=== PATIENT | female | born 1945 | race Caucasian/White ===

== ENCOUNTER 2016-08-15 19:24 | Emergency (ER) | payer OTHER ==
[~2016-08-15] VITALS: Wt 68.2 kg
[~2016-08-15 19:24] MED LIST: ACET-514 PO; ACET500C5 PO; TRAM50TA2 PO
[2016-08-15] MEDS ORDERED: LIDOCAINE 1%/EPI (MDV) 20 ML INJ TOP ONE (20:00)
--- NOTE | 2016-08-15 20:37 | ERD ---
ER Documentation Chief Complaint Date/Time DATE: 08/15/16 TIME: 20:35 Chief Complaint bleeding post tooth extraction, bleeding controlled w biting down on franco CORMIER This is a 70-year-old female presents to the emergency room for evaluation of bleeding postextraction of her tooth. The patient states that she has been using gauze and has noted some mild oozing of blood. The patient came to the ER today for evaluation. She denies any trauma to the area, denies any bleeding from any other sites, denies being on blood thinner medication ROS All systems reviewed and are negative except as per history of present illness. Medications Home Meds Active Scripts Acetaminophen* (Tylophen*) 500 Mg Capsule, 1 CAP PO Q6H Y for PAIN AND OR ELEVATED TEMP, #20 CAP Prov:ANAYA TURNER PA-C 05/25/16 Tramadol HCl (Tramadol HCl) 50 Mg Tablet, 50 MG PO Q6 Y for PAIN, #10 TAB Prov:GAYATRI WAGONER DO 03/24/16 Acetaminophen (Acetaminophen) 325 Mg Tablet, 325 MG PO Q4H WHILE AWAKE, #20 TAB Prov:GAYATRI WAGONER DO 03/24/16 Allergies Allergies: Coded Allergies: No Known Allergy (Unverified , 05/25/16) PMhx/Soc History of Surgery: Yes (CSECT X1, TUBAL LIGATION) Anesthesia Reaction: No Hx Neurological Disorder: No Hx Respiratory Disorders: No Hx Cardiac Disorders: Yes (HTN, HIGH CHOLESTEROL) Hx Psychiatric Problems: No Hx Alcohol Use: No Hx Substance Use: No Hx Tobacco Use: No Physical Exam Vitals Vital Signs Date Time Temp Pulse Resp B/P Pulse Ox O2 Delivery O2 Flow Rate FiO2 08/15/16 19:37 98.5 99 20 174/81 96 Physical Exam Const: No acute distress Head: Atraumatic Eyes: Normal Conjunctiva ENT: Right lower premolar tooth extraction with sutures in place, mild oozing noted from the gum. No pulsatile bleeding. Normal External Ears, Nose and Mouth. Neck: Full range of motion..~ No meningismus. Resp: Clear to auscultation bilaterally Cardio: Regular rate and rhythm, no murmurs Abd: Soft, non tender, non distended. Normal bowel sounds Skin: No petechiae or rashes Back: No midline or flank tenderness Ext: No cyanosis, or edema Neur: Awake and alert Psych: Normal Mood and Affect Results 24 hrs Current Medications Medications (Trade) Dose Ordered Sig/Mor Route PRN Reason Start Time Stop Time Status Last Admin Dose Admin Lidocaine/ Epinephrine (Xylocaine 1%/ Epi (Mdv) 20 ml) 20 ml ONCE ONCE TOP 08/15/16 20:00 08/15/16 20:01 DC Procedures/MDM This 70-year-old female presents to the ER for evaluation of bleeding from a extraction site of her tooth. When I evaluated this patient she had mild oozing from the site. She did have gauze in her mouth. I removed the gauze and the blood clot. I did place a gauze coated with 1% lidocaine with epinephrine on the side and held pressure for 20 minutes. There was still mild oozing however it was less. More pressure was applied and more epinephrine was applied with almost complete resolution of her bleeding. I advised patient she can use a tea bag at home. The patient verbalized understanding. No dizziness , no hypotension. This patient will be discharged home at this time per Departure Diagnosis: Primary Impression: Bleeding gums Condition: Stable SHAUN STEVEN DO Aug 15, 2016 20:37
== END 2016-08-15 21:01 | disposition home or self-care (01) ==
LOC: FTE 19:24
DX: K06.8 Other specified disorders of gingiva and edentulous alveolar ridge (principal); I10 Essential (primary) hypertension; E11.9 Type 2 diabetes mellitus without complications
CPT/HCPCS: 99282

== ENCOUNTER 2016-08-16 14:20 | Emergency (ER) | payer OTHER ==
[~2016-08-16] VITALS: Wt 52.0 kg
--- NOTE | 2016-08-16 18:41 | ERA ---
ER Documentation Chief Complaint Date/Time DATE: 08/16/16 TIME: 18:36 Chief Complaint DENTAL BLEEDING FROM TOOTH REMOVAL 24 HOURS AGO. BLEEDING NOT CONTROLED HPI Patient presents one day after getting 1 of her right lower molars pulled. Patient is upset because the bleeding has not stopped yet. Patient has not been compliant with the gauze and the pressure. Patient's on aspirin and now is also taking ibuprofen. Patient claims to not have any pain at this time. Patient is also taking amoxicillin for prophylaxis for infection. Patient denies any swelling or difficulty breathing. ROS All systems reviewed and are negative except as per history of present illness. Medications Home Meds Active Scripts Acetaminophen* (Tylophen*) 500 Mg Capsule, 1 CAP PO Q6H Y for PAIN AND OR ELEVATED TEMP, #20 CAP Prov:ANAYA TURNER PA-C 05/25/16 Tramadol HCl (Tramadol HCl) 50 Mg Tablet, 50 MG PO Q6 Y for PAIN, #10 TAB Prov:GAYATRI WAGONER DO 03/24/16 Acetaminophen (Acetaminophen) 325 Mg Tablet, 325 MG PO Q4H WHILE AWAKE, #20 TAB Prov:GAYATRI WAGONER DO 03/24/16 Allergies Allergies: Coded Allergies: No Known Allergy (Unverified , 05/25/16) PMhx/Soc History of Surgery: Yes (CSECT X1, TUBAL LIGATION) Anesthesia Reaction: No Hx Neurological Disorder: No Hx Respiratory Disorders: No Hx Cardiac Disorders: Yes (HTN, HIGH CHOLESTEROL) Hx Psychiatric Problems: No Hx Alcohol Use: No Hx Substance Use: No Hx Tobacco Use: No Physical Exam Vitals Vital Signs Date Time Temp Pulse Resp B/P Pulse Ox O2 Delivery O2 Flow Rate FiO2 08/16/16 14:32 98.5 88 20 127/68 98 Physical Exam Const: Patient is a thin 70-year-old female who seems anxious. Head: Atraumatic Eyes: Normal Conjunctiva ENT: Normal External Ears, Nose. Patient has a missing lower right molar with bleeding from the area. Neck: Full range of motion..~ No meningismus. Resp: Clear to auscultation bilaterally Cardio: Regular rate and rhythm, no murmurs Abd: Soft, non tender, non distended. Normal bowel sounds Skin: No petechiae or rashes Back: No midline or flank tenderness Ext: No cyanosis, or edema Neur: Awake and alert Psych: Normal Mood and Affect Procedures/MDM It has only been 1 day since patient had the tooth removed. Considering she has not been compliant with the dressings and she is taking both aspirin and ibuprofen I do not expect that the bleeding should have stopped by now anyways. My recommendation for her is since she is not in pain discontinue the ibuprofen but continue the aspirin as her PCP as prescribed. Start by applying firm pressure to the gauze in the affected area for 2-4 hour and then replacing with more guys after. If swelling, erythema or infection like symptoms occur I have told her that she should return to the emergency department and contact dentist at once. At this time there is no reason to believe that there is any infection or airway involvement or excessive blood loss whatsoever. Blood loss and physical examination was minimal amounting in about 1, maybe 2 mL. Departure Diagnosis: Primary Impression: History of recent dental procedure Additional Impression: Active bleeding Condition: Stable Patient Instructions: First Aid: Bleeding Additional Instructions: Contact dentist for more clear directions on post operative wound care. My recommendation is to keep firm pressure for 2-4 hours at a time on the affected area and change the dressing. If patient is not any pain she may stop taking the ibuprofen. Do not stop taking the aspirin unless directed by her primary care physician. Follow-up with her primary care physician in 2-3 days. MARISOL HERNANDEZ PA-C Aug 16, 2016 18:41
== END 2016-08-16 18:15 | disposition home or self-care (01) ==
LOC: FTE 14:20
DX: K91.840 Postprocedural hemorrhage of a digestive system organ or structure following a digestive system procedure (principal); H05.231 Hemorrhage of right orbit; I10 Essential (primary) hypertension; E11.9 Type 2 diabetes mellitus without complications
CPT/HCPCS: 99282

== ENCOUNTER 2017-01-05 21:27 | Emergency (ER) | payer OTHER ==
[~2017-01-05] VITALS: Ht 157.5 cm; Wt 56.0 kg
[2017-01-05 21:32] VITALS: Ht 157.5 cm; Wt 56.0 kg
[2017-01-05 22:43] LABS: BASOPHILS % 0.7 % (0.0-2.0); EOSINOPHILS # 0.1 10^3/ul (0.0-0.5); EOSINOPHILS % 1.9 % (0.0-7.0); HEMATOCRIT 37.8 % (37.0-47.0); HEMOGLOBIN 13.3 g/dl (12.0-16.0); LYMPHOCYTES # 2.1 10^3/ul (0.8-2.9); LYMPHOCYTES % 36.7 % (15.0-51.0); MEAN CORPUSCULAR HEMOGLOBIN 31.4 pg (29.0-33.0); MEAN CORPUSCULAR HGB CONC 35.2 g/dl (32.0-37.0); MEAN CORPUSCULAR VOLUME 89.4 fl (82.0-101.0); MEAN PLATELET VOLUME 9.3 fl (7.4-10.4); MONOCYTE # 0.5 10^3/ul (0.3-0.9); NEUTROPHILS % 51.4 % (39.0-77.0); PLATELET COUNT 281 10^3/UL (140-415); RED BLOOD COUNT 4.23 10^6/ul (4.20-5.40); RED CELL DISTRIBUTION WIDTH 13.6 % (11.5-14.5); WHITE BLOOD COUNT 5.8 10^3/ul (4.8-10.8)
[2017-01-05] MEDS ORDERED: MECLIZINE 12.5 MG TAB PO ONE (23:00)
[2017-01-05 23:01] LABS: INR 0.91; PROTIME 12.3 Sec (12.2-14.2)
[2017-01-05 23:02] LABS: PARTIAL THROMBOPLASTIN TIME 34.6 Sec (25.0-35.0)
[2017-01-05 23:03] LABS: ANION GAP 19 (8-16); BLOOD UREA NITROGEN 13 mg/dl (7-20); CALCIUM 9.5 mg/dl (8.4-10.2); CARBON DIOXIDE 25 mmol/L (21-31); CHLORIDE 104 mmol/L (97-110); CREATININE 0.58 mg/dl (0.44-1.00); GLUCOSE 175 mg/dl (70-220); POTASSIUM 3.5 mmol/L (3.5-5.1); SODIUM 144 mmol/L (135-144)
[2017-01-05 23:07] LABS: ADD UMIC YES; UR ASCORBIC ACID NEGATIVE (NEGATIVE); UR BILIRUBIN (Dip) NEGATIVE (NEGATIVE); UR BLOOD (Dip) 1+ mg/dL (NEGATIVE); UR CLARITY CLEAR (CLEAR); UR COLOR COLORLESS (YELLOW); UR GLUCOSE (Dip) NEGATIVE (NEGATIVE); UR KETONES (Dip) NEGATIVE (NEGATIVE); UR LEUKOCYTE ESTERASE (Dip) 1+ Leu/ul (NEGATIVE); UR NITRITE (Dip) NEGATIVE (NEGATIVE); UR RBC 0 /HPF (0-5); UR SPECIFIC GRAVITY (Dip) 1.002 (1.003-1.030); UR TOTAL PROTEIN (Dip) NEGATIVE (NEGATIVE); UR UROBILINOGEN (Dip) NEGATIVE (NEGATIVE)
--- NOTE | 2017-01-05 23:15 | ERD ---
ER Documentation Chief Complaint Date/Time DATE: 01/05/17 TIME: 23:13 Chief Complaint C/O dizziness and headache. B/P in 200s at home with her own machine. HPI This is a 71-year-old female who presents to the emergency room for evaluation of dizziness and a slight headache. The patient states that she check her blood pressure at home and was elevated. She does have a history of hypertension and the patient denies any trauma. She denies any blurred vision, nausea, vomiting or chest pain associated with this. She localizes the headache to the front portion of her head and states that it is an achy pain. The patient states that she has had headaches like this previously when her blood pressure has been high. ROS All systems reviewed and are negative except as per history of present illness. Medications Home Meds Active Scripts Acetaminophen* (Tylophen*) 500 Mg Capsule, 1 CAP PO Q6H Y for PAIN AND OR ELEVATED TEMP, #20 CAP Prov:ANAYA TURNER PA-C 05/25/16 Tramadol HCl (Tramadol HCl) 50 Mg Tablet, 50 MG PO Q6 Y for PAIN, #10 TAB Prov:GAYATRI WAGONER DO 03/24/16 Acetaminophen (Acetaminophen) 325 Mg Tablet, 325 MG PO Q4H WHILE AWAKE, #20 TAB Prov:GAYATRI WAGONER DO 03/24/16 Allergies Allergies: Coded Allergies: No Known Allergy (Unverified , 05/25/16) PMhx/Soc Medical and Surgical Hx: pt denies Medical Hx, pt denies Surgical Hx History of Surgery: Yes (CSECT X1, TUBAL LIGATION) Anesthesia Reaction: No Hx Neurological Disorder: No Hx Respiratory Disorders: No Hx Cardiac Disorders: Yes (HTN, HIGH CHOLESTEROL) Hx Psychiatric Problems: No Hx Alcohol Use: No Hx Substance Use: No Hx Tobacco Use: No Smoking Status: Never smoker Physical Exam Vitals Vital Signs Date Time Temp Pulse Resp B/P Pulse Ox O2 Delivery O2 Flow Rate FiO2 01/05/17 21:58 98.6 89 18 157/77 100 Room Air 01/05/17 21:32 97.0 83 20 191/84 98 Physical Exam INITIAL VITAL SIGNS: Reviewed by me GENERAL: The patient is well developed and appropriate for usual state of health in no apparent distress HEENT: Pupils equal, round, and reactive to light. EOMI. There is no scleral icterus. NECK: C-spine is soft and supple, there is no meningismus. There is no cervical lymphadenopathy. LUNGS: Clear to auscultation bilaterally. There are no rales, wheezes or rhonchi. HEART: Regular rate and rhythm, no murmurs, clicks, rubs or gallops. ABDOMEN: Soft, non-tender, non-distended. There are bowel sounds in all four quadrants. No rebound or guarding. EXTREMITIES: There is no peripheral cyanosis or edema. No focal swelling or erythema. NEUROLOGICAL: The patient moves all four extremities with 5/5 strength. Cranial nerves II - XII are intact. Normal gait. Alert and oriented SKIN: There is no apparent rash or petechiae. HEME/LYMPHATIC: There is no evidence of excessive bruising or lymphedema. PSYCHIATRIC: The patient does not appear anxious or depressed. Result Diagram: 01/05/17221401/05/172214 Results 24 hrs Laboratory Tests Test 01/05/17 22:00 01/05/17 22:04 01/05/17 22:15 Urine Color COLORLESS Urine Clarity CLEAR Urine pH 7.0 Urine Specific [place] 1.002 Urine Ketones NEGATIVEmg/dL Urine Nitrite NEGATIVEmg/dL Urine Bilirubin NEGATIVEmg/dL Urine Urobilinogen NEGATIVEmg/dL Urine Leukocyte Esterase 1+Yahir/ul Urine Microscopic RBC 0/HPF Urine Microscopic WBC 1/HPF Urine Hemoglobin 1+mg/dL Urine Glucose NEGATIVEmg/dL Urine Total Protein NEGATIVEmg/dl Bedside Glucose 182mg/dL White Blood Count 5.810^3/ul Red Blood Count 4.2310^6/ul Hemoglobin 13.3g/dl Hematocrit 37.8% Mean Corpuscular Volume 89.4fl Mean Corpuscular Hemoglobin 31.4pg Mean Corpuscular Hemoglobin Concent 35.2g/dl Red Cell Distribution Width 13.6% Platelet Count 71019^3/UL Mean Platelet Volume 9.3fl Neutrophils % 51.4% Lymphocytes % 36.7% Monocytes % 9.0% Eosinophils % 1.9% Basophils % 0.7% Nucleated Red Blood Cells % 0.0/100WBC Neutrophils # 3.010^3/ul Lymphocytes # 2.110^3/ul Monocytes # 0.510^3/ul Eosinophils # 0.110^3/ul Basophils # 0.010^3/ul Nucleated Red Blood Cells # 0.010^3/ul Prothrombin Time 12.3Sec Prothrombin Time Ratio 1.0 INR International Normalized Ratio 0.91 Activated Partial Thromboplast Time 34.6Sec Sodium Level 144mmol/L Potassium Level 3.5mmol/L Chloride Level 104mmol/L Carbon Dioxide Level 25mmol/L Anion Gap 19 Blood Urea Nitrogen 13mg/dl Creatinine 0.58mg/dl Glucose Level 175mg/dl Calcium Level 9.5mg/dl Troponin I Pending Current Medications Medications (Trade) Dose Ordered Sig/Mor Route PRN Reason Start Time Stop Time Status Last Admin Dose Admin Meclizine HCl (Antivert) 25 mg ONCE ONCE PO 01/05/17 23:00 01/05/17 23:01 DC 01/05/17 23:24 Procedures/MDM EKG: Rate/Rhythm: [Normal Sinus Rhythm] QRS, ST, T-waves: [No changes consistent w/ acute ischemia] Impression: [No evidence of ischemia or arrhythmia] Chest X-ray 1V Interpreted by me: Soft Tissue: No acute abnormalities Bones: No acute abnormalities Mediastinum/Cardiac Silhouette/Lungs: [No acute abnormalities] CT brain without: No bleed 71-year-old female presents to the emergency room for evaluation of dizziness and a headache. The patient was stating she had an elevated blood pressure at home. The patient's blood pressure in the emergency room is 131/74. Her heart rate is within normal limits, she is not hypoxic, no acute distress. She is afebrile, no meningeal signs and she is alert oriented to person place and time with no focal neurological deficits. Lab work is within normal limits, CT of the head is within normal limits at this time. The patient was given meclizine and upon my reevaluation she does state she is feeling better. The patient will be discharged at this time with a prescription for meclizine Departure Diagnosis: Primary Impression: Dizziness Additional Impression: Headache Condition: Stable HSAUN STEVEN DO Jan 05, 2017 23:15
--- NOTE | 2017-01-05 23:19 | RADRPT ---
PROCEDURE: CT Head without. CLINICAL INDICATION: Possible stroke. TECHNIQUE: The study was performed utilizing a multi-slice, multidetector CT scanner. Direct spira l 1 mm axial sections were obtained through the head without the use of intravenous contrast materia l. 1 or more of the following dose reduction techniques were utilized: Automated exposure control, adjustment of the mA and/or kV according to patient's size, iterative reconstruction technique. Co paddy and sagittal reformations were obtained. The images were reviewed on a PACS workstation. RADIATION DOSE: CTDIvol: 44.3 mGyDLP: 720.2 mGy-cm COMPARISON: No prior studies are available for comparison. FINDINGS: There is no intracranial hemorrhage, extra-axial fluid collection, mass lesion, midline shift or hyd rocephalus. There is mild prominence of the cerebral sulci, lateral and third ventricles. There is mild periventricular and subcortical white matter hypodensity. There is mild arteriosclerotic calc ification of the parasellar internal carotid arteries. The aleman-white matter differentiation is pre served. The basal cisterns are patent. The midline structures are intact. The orbits, calvarium a nd extracranial soft tissues are normal in appearance. The visualized paranasal sinuses, mastoid air cells and middle ear cavities are normally aerated. IMPRESSION: 1. No acute intracranial abnormality. No intracranial hemorrhage, extra-axial fluid collection, ma ss lesion or hydrocephalous. 2. Mild peripheral and central cerebral volume loss. 3. Mild periventricular and subcortical white matter hypodensity, likely related to chronic microan giopathic changes. 4. No CT evidence of infarct at this time. If clinical concern for infarct, MRI is recommended for further evaluation. RPTAT: HGAS .Twin Godfrey MD, MD Date Time Electronically viewed and signed by .Twin Godfrey MD, MD on 01/05/2017 23:19 .S/
--- NOTE | 2017-01-05 23:26 | RADRPT ---
PROCEDURE: XR Chest. CLINICAL INDICATION: Possible cerebrovascular accident. TECHNIQUE: Single frontal view of the chest. COMPARISON: 05/25/2016. FINDINGS: Heart size is mildly enlarged. Mild atherosclerotic calcifications in the thoracic aorta. Evaluation of lung bases is limited secondary to overlying soft tissues. The lungs are otherwise clear. No sig ns of pleural fluid or pneumothorax are seen. The osseous structures and soft tissues are unremarkab le. IMPRESSION: No evidence for active cardiopulmonary disease. RPTAT: [facility] Physician Ean Date Time Electronically viewed and signed by Physician Ean on 01/05/2017 23:26 RS/
[2017-01-05] MEDS ORDERED: MECL-77 PO (23:30)
[2017-01-05 23:37] VITALS: BP 138/49; PULSE 74; RESP 20; TEMP 98.6
[2017-01-05 23:37] LABS: TROPONIN-I < 0.012 ng/ml (0.00-0.12)
[2017-01-06 00:09] LABS: BARBITURATES NEGATIVE (NEGATIVE); BENZODIAZEPINES NEGATIVE (NEGATIVE); CANNABINOIDS NEGATIVE (NEGATIVE); COCAINE NEGATIVE (NEGATIVE); OPIATES NEGATIVE (NEGATIVE)
== END 2017-01-05 23:45 | disposition home or self-care (01) ==
LOC: E/R 21:27
DX: R42 Dizziness and giddiness (principal); R40.2142 Coma scale, eyes open, spontaneous, at arrival to emergency department; R51 Headache; I10 Essential (primary) hypertension; R40.2362 Coma scale, best motor response, obeys commands, at arrival to emergency department; R07.9 Chest pain, unspecified
CPT/HCPCS: 36415; 70450; 71010; 80048; 80307; 81001; 82962; 83036; 84484; 85025; 85610; 85730; 93005

== ENCOUNTER 2017-02-05 00:16 | Emergency (ER) | payer OTHER ==
[~2017-02-05] VITALS: Ht 170.2 cm; Wt 57.0 kg
[~2017-02-05 00:16] MED LIST changes: +MECL-77 PO
[2017-02-05 00:21] VITALS: Ht 170.2 cm; Wt 57.0 kg
[2017-02-05] MEDS ORDERED: hydrALAzine 20 MG INJ IV ONE (02:00)
--- NOTE | 2017-02-05 02:19 | RADRPT ---
PROCEDURE: Portable chest x-ray. CLINICAL INDICATION: Chest pain. TECHNIQUE: Portable AP view of the chest. COMPARISON: 05/25/2016. FINDINGS: No pulmonary edema or conolidation is identified. The cardiac silhouette is magnified. No pleural effusion is seen. There is no pneumothorax. IMPRESSION: 1. No evidence of acute cardiopulmonary disease. RPTAT: HTAR .Galindo Najera MD, MD Date Time Electronically viewed and signed by .Galindo Najera MD, on 02/05/2017 02:19 .R/
[2017-02-05 02:23] LABS: BASOPHIL # 0.1 10^3/ul (0.0-0.1); BASOPHILS % 0.9 % (0.0-2.0); EOSINOPHILS # 0.1 10^3/ul (0.0-0.5); EOSINOPHILS % 1.6 % (0.0-7.0); HEMATOCRIT 38.7 % (37.0-47.0); HEMOGLOBIN 13.4 g/dl (12.0-16.0); LYMPHOCYTES # 1.4 10^3/ul (0.8-2.9); LYMPHOCYTES % 21.5 % (15.0-51.0); MEAN CORPUSCULAR HEMOGLOBIN 31.4 pg (29.0-33.0); MEAN CORPUSCULAR HGB CONC 34.6 g/dl (32.0-37.0); MEAN CORPUSCULAR VOLUME 90.6 fl (82.0-101.0); MEAN PLATELET VOLUME 9.3 fl (7.4-10.4); MONOCYTE # 0.4 10^3/ul (0.3-0.9); MONOCYTES % 6.2 % (0.0-11.0); NEUTROPHILS % 68.9 % (39.0-77.0); PLATELET COUNT 272 10^3/UL (140-415); RED BLOOD COUNT 4.27 10^6/ul (4.20-5.40); RED CELL DISTRIBUTION WIDTH 13.2 % (11.5-14.5); WHITE BLOOD COUNT 6.4 10^3/ul (4.8-10.8)
--- NOTE | 2017-02-05 02:38 | RADRPT ---
PROCEDURE: CT Brain without contrast. CLINICAL INDICATION: Dizziness. TECHNIQUE: A CT of the brain was performed on a multislice detector CT scanner utilizing axial sec tions from the skull base through the vertex without contrast. Images were reviewed on a [id number] PACS workstation. Exam CTDlvol = 45 mGy and DLP = 720 mGy-cm. One of the following 3 dose red uction techniques were used: Automated exposure control; adjustment of the mA and/or kV according to patient size; or use of iterative reconstruction technique. COMPARISON: 01/05/2017 FINDINGS: There is age appropriate central and peripheral atrophy. There is no midline shift. There is a mod erate degree of supratentorial periventricular and subcortical white matter hypodensities. There is no definite acute stroke. There is no mass lesion. There is no intracranial hemorrhage or abnorma l extra-axial fluid collection. Visualized paranasal sinuses are clear. IMPRESSION: 1. No acute intracranial abnormality. 2. Nonspecific white matter changes most commonly seen with microvascular ischemic disease. RPTAT: HMVK .Jono Santos MD, MD Date Time Electronically viewed and signed by .Jono Santos MD, MD on 02/05/2017 02:38 .K/
[2017-02-05 02:42] LABS: ALANINE AMINOTRANSFERASE 55 IU/L (13-69); ALBUMIN 4.5 g/dl (3.3-4.9); ALBUMIN/GLOBULIN RATIO 1.09; ALKALINE PHOSPHATASE 160 IU/L (42-121); ANION GAP 16 (8-16); ASPARTATE AMINO TRANSFERASE 41 IU/L (15-46); BILIRUBIN,INDIRECT 0.2 mg/dl (0-1.1); BILIRUBIN,TOTAL 0.2 mg/dl (0.2-1.3); BLOOD UREA NITROGEN 18 mg/dl (7-20); CALCIUM 9.6 mg/dl (8.4-10.2); CARBON DIOXIDE 23 mmol/L (21-31); CHLORIDE 104 mmol/L (97-110); CREATININE 0.57 mg/dl (0.44-1.00); GLUCOSE 308 mg/dl (70-220); POTASSIUM 4.1 mmol/L (3.5-5.1); SODIUM 139 mmol/L (135-144); TOTAL PROTEIN 8.6 g/dl (6.1-8.1)
[2017-02-05 02:54] LABS: B-TYPE NATRIURETIC PEPTIDE 114 PG/ML (0-125)
[2017-02-05 02:59] LABS: TROPONIN-I < 0.012 ng/ml (0.00-0.12)
[2017-02-05] MEDS ORDERED: LOSA25TA5 PO (04:03)
[2017-02-05] MEDS ORDERED: PIOG45TA17 PO (04:03)
[2017-02-05] MEDS ORDERED: ASPI-664 PO (04:03)
--- NOTE | 2017-02-05 05:36 | ERD ---
ER Documentation Chief Complaint Date/Time DATE: 02/05/17 TIME: 05:34 Chief Complaint hypertension w/ hx- htn taking bp meds, accu check-317 HPI Multiple graded 71-year-old female with abdominal complaints of hypertension. She has a history of elevated blood pressure. Patient states she was taking her medications. Denies any chest pain. Denies any nausea vomiting fevers chills. ROS All systems reviewed and are negative except as per history of present illness. Medications Home Meds Reported Medications Aspirin* (Aspirin* EC) 81 Mg Tablet.dr, 81 MG PO DAILY, TAB 02/05/17 Pioglitazone Hcl* (Pioglitazone Hcl*) 45 Mg Tablet, 45 MG PO DAILY, TAB 02/05/17 Losartan Potassium* (Losartan Potassium*) 25 Mg Tablet, 25 MG PO DAILY, TAB 02/05/17 Discontinued Scripts Meclizine Hcl* (Meclizine Hcl*) 25 Mg Tablet, 25 MG PO Q8H Y for DIZZINESS for 7 Days, TAB Prov:SHAUN STEVEN DO 01/05/17 Acetaminophen* (Tylophen*) 500 Mg Capsule, 1 CAP PO Q6H Y for PAIN AND OR ELEVATED TEMP, #20 CAP Prov:ANAYA TURNER PA-C 05/25/16 Tramadol HCl (Tramadol HCl) 50 Mg Tablet, 50 MG PO Q6 Y for PAIN, #10 TAB Prov:GAYATRI WAGONER DO 03/24/16 Acetaminophen (Acetaminophen) 325 Mg Tablet, 325 MG PO Q4H WHILE AWAKE, #20 TAB Prov:GAYATRI WAGONER DO 03/24/16 Allergies Allergies: Coded Allergies: No Known Allergy (Unverified , 05/25/16) PMhx/Soc History of Surgery: No Anesthesia Reaction: No Hx Neurological Disorder: No Hx Respiratory Disorders: No Hx Cardiac Disorders: Yes (HTN) Hx Psychiatric Problems: No Hx Miscellaneous Medical Probl: Yes (DM) Hx Alcohol Use: No Hx Substance Use: No Hx Tobacco Use: No Smoking Status: Never smoker Physical Exam Vitals Vital Signs Date Time Temp Pulse Resp B/P Pulse Ox O2 Delivery O2 Flow Rate FiO2 02/05/17 03:21 89 18 121/58 99 Room Air 02/05/17 01:48 Nasal Cannula 2 02/05/17 01:30 91 16 168/79 98 Room Air 02/05/17 00:21 98.3 107 20 200/101 97 Physical Exam Const: [] Head: Atraumatic Eyes: Normal Conjunctiva ENT: Normal External Ears, Nose and Mouth. Neck: Full range of motion..~ No meningismus. Resp: Clear to auscultation bilaterally Cardio: Regular rate and rhythm, no murmurs Abd: Soft, non tender, non distended. Normal bowel sounds Skin: No petechiae or rashes Back: No midline or flank tenderness Ext: No cyanosis, or edema Neur: Awake and alert Psych: Normal Mood and Affect Result Diagram: 02/05/1713902/05/17139 Results 24 hrs Laboratory Tests Test 02/05/17 00:42 02/05/17 01:40 02/05/17 01:57 Bedside Glucose 317mg/dL 304mg/dL White Blood Count 6.410^3/ul Red Blood Count 4.2710^6/ul Hemoglobin 13.4g/dl Hematocrit 38.7% Mean Corpuscular Volume 90.6fl Mean Corpuscular Hemoglobin 31.4pg Mean Corpuscular Hemoglobin Concent 34.6g/dl Red Cell Distribution Width 13.2% Platelet Count 17993^3/UL Mean Platelet Volume 9.3fl Neutrophils % 68.9% Lymphocytes % 21.5% Monocytes % 6.2% Eosinophils % 1.6% Basophils % 0.9% Nucleated Red Blood Cells % 0.0/100WBC Neutrophils # (Manual) 4.410^3/ul Lymphocytes # 1.410^3/ul Monocytes # 0.410^3/ul Eosinophils # 0.110^3/ul Basophils # 0.110^3/ul Nucleated Red Blood Cells # 0.010^3/ul Sodium Level 139mmol/L Potassium Level 4.1mmol/L Chloride Level 104mmol/L Carbon Dioxide Level 23mmol/L Anion Gap 16 Blood Urea Nitrogen 18mg/dl Creatinine 0.57mg/dl Glucose Level 308mg/dl Calcium Level 9.6mg/dl Total Bilirubin 0.2mg/dl Direct Bilirubin 0.00mg/dl Indirect Bilirubin 0.2mg/dl Aspartate Amino Transf (AST/SGOT) 41IU/L Alanine Aminotransferase (ALT/SGPT) 55IU/L Alkaline Phosphatase 160IU/L Troponin I < 0.012ng/ml B-Type Natriuretic Peptide 114PG/ML Total Protein 8.6g/dl Albumin 4.5g/dl Globulin 4.10g/dl Albumin/Globulin Ratio 1.09 Current Medications Medications (Trade) Dose Ordered Sig/Mor Route PRN Reason Start Time Stop Time Status Last Admin Dose Admin Hydralazine HCl (Apresoline) 20 mg ONCE ONCE IV 02/05/17 02:00 02/05/17 02:01 DC 02/05/17 01:50 Procedures/MDM EKG: Rate/Rhythm: [Normal Sinus Rhythm] QRS, ST, T-waves: [No changes consistent w/ acute ischemia] Impression: [No evidence of ischemia or arrhythmia] Chest X-ray 1V Interpreted by me: Soft Tissue: No acute abnormalities Bones: No acute abnormalities Mediastinum/Cardiac Silhouette/Lungs: [No acute abnormalities] Patient's thoracic symptoms have stabilized while in the department and are stable for outpatient follow up. Exam and work up not consistent w/ ischemia, arrhythmia, PE or dissection. Departure Diagnosis: Primary Impression: Hypertension Hypertension type: essential hypertension Qualified Code: I10 - Essential hypertension Additional Impression: Hyperglycemia Condition: Stable TONY CARO Feb 05, 2017 05:36
[2017-02-05 05:41] VITALS: BP 141/68; PULSE 87; RESP 18
== END 2017-02-05 07:47 | disposition home or self-care (01) ==
LOC: E/R 00:16
DX: I10 Essential (primary) hypertension (principal); E11.65 Type 2 diabetes mellitus with hyperglycemia; R42 Dizziness and giddiness; Z79.82 Long term (current) use of aspirin
CPT/HCPCS: 36415; 70450; 71010; 80053; 82962; 83880; 84484; 85025; 93005; 96374; 99285; J0360

== ENCOUNTER 2017-03-25 18:10 | Emergency (ER) | payer OTHER ==
[~2017-03-25] VITALS: Ht 154.9 cm; Wt 55.5 kg
[~2017-03-25 18:10] MED LIST changes: -ACET-514 PO; -ACET500C5 PO; +ASPI-664 PO; +LOSA25TA5 PO; -MECL-77 PO; +PIOG45TA17 PO; -TRAM50TA2 PO
[2017-03-25 19:32] VITALS: Ht 154.9 cm; Wt 55.5 kg
[2017-03-25] MEDS ORDERED: SOD CHLORIDE 0.9% 500 ML IV STA (22:10)
[2017-03-25 22:53] LABS: BASOPHILS % 0.5 % (0.0-2.0); EOSINOPHILS # 0.1 10^3/ul (0.0-0.5); EOSINOPHILS % 0.6 % (0.0-7.0); HEMATOCRIT 41.1 % (37.0-47.0); HEMOGLOBIN 14.3 g/dl (12.0-16.0); LYMPHOCYTES # 2.5 10^3/ul (0.8-2.9); LYMPHOCYTES % 29.7 % (15.0-51.0); MEAN CORPUSCULAR HEMOGLOBIN 31.8 pg (29.0-33.0); MEAN CORPUSCULAR HGB CONC 34.8 g/dl (32.0-37.0); MEAN CORPUSCULAR VOLUME 91.3 fl (82.0-101.0); MEAN PLATELET VOLUME 8.8 fl (7.4-10.4); MONOCYTE # 0.6 10^3/ul (0.3-0.9); MONOCYTES % 6.8 % (0.0-11.0); NEUTROPHIL # 5.1 10^3/ul (1.6-7.5); NEUTROPHILS % 62.2 % (39.0-77.0); PLATELET COUNT 271 10^3/UL (140-415); RED CELL DISTRIBUTION WIDTH 12.9 % (11.5-14.5); WHITE BLOOD COUNT 8.3 10^3/ul (4.8-10.8)
[2017-03-25 23:37] LABS: ALANINE AMINOTRANSFERASE 56 IU/L (13-69); ALBUMIN 4.5 g/dl (3.3-4.9); ALBUMIN/GLOBULIN RATIO 1.02; ALKALINE PHOSPHATASE 135 IU/L (42-121); ANION GAP 14 (8-16); ASPARTATE AMINO TRANSFERASE 44 IU/L (15-46); BILIRUBIN,INDIRECT 0.5 mg/dl (0-1.1); BILIRUBIN,TOTAL 0.5 mg/dl (0.2-1.3); BLOOD UREA NITROGEN 12 mg/dl (7-20); CALCIUM 9.7 mg/dl (8.4-10.2); CARBON DIOXIDE 24 mmol/L (21-31); CHLORIDE 107 mmol/L (97-110); CREATININE 0.58 mg/dl (0.44-1.00); GLUCOSE 147 mg/dl (70-220); POTASSIUM 3.8 mmol/L (3.5-5.1); SODIUM 141 mmol/L (135-144); TOTAL PROTEIN 8.9 g/dl (6.1-8.1)
[2017-03-25 23:48] LABS: B-TYPE NATRIURETIC PEPTIDE 55 PG/ML (0-125)
[2017-03-26] LABS: TROPONIN-I < 0.012 ng/ml (0.00-0.12)
[2017-03-26 00:42] VITALS: TEMP 98.9
--- NOTE | 2017-03-26 01:16 | RADRPT ---
PROCEDURE: XR Chest. CLINICAL INDICATION: Chest pain. TECHNIQUE: PA and Lateral views of the chest were obtained. COMPARISON: 05/25/2016. FINDINGS: The cardiomediastinal silhouette is within normal limits. Atherosclerotic calcifications in the thor acic aorta. New mild discoid atelectasis at the left lung base. The lungs are otherwise clear. No si gns of pleural fluid or pneumothorax are seen. The osseous structures and soft tissues are unremarka ble. IMPRESSION: New mild discoid atelectasis at the left lung base. RPTAT: [facility] Physician Ean Date Time Electronically viewed and signed by Physician Ean on 03/26/2017 01:16 RS/
--- NOTE | 2017-03-26 01:35 | RADRPT ---
PROCEDURE: CT BRAIN WITHOUT CONTRAST CLINICAL INDICATION: 71-year-old female with headaches. TECHNIQUE: The study was performed utilizing [employer] VCT 64-slice CT scanner. Direct axial sections were obtained from the foramen magnum to the vertex without the use of intravenous contrast material. Sagittal and coronal reformations were obtained. One or more the following dose reduction techniques were utilized: automated exposure control, adjustment of the mA and/or kV according to p atient's size or use of iterative reconstruction technique. The images were viewed on a PACS worksta tion. CTD/vol = 44.9 mGy; Total Exam DLP = 720.2 mGy-cm. COMPARISON: CT brain February 05, 2017. FINDINGS: There is mild degree of diffuse cortical and central atrophy with compensatory ventricular enlargeme nt. There is no evidence for mass effect or midline shift. There are periventricular areas of decr eased density consistent with microangiopathic ischemic changes. There is no evidence for acute int ra or extra-axial blood. Calcifications are seen within the intracranial carotid arteries bilaterall y. The bony calvarium is intact. There is mild mucosal thickening within the ethmoid air cells bilat erally. There is moderate mucosal thickening and proteinaceous material within the dependent portion of the right sphenoid sinus. The mastoid air cells are without significant soft tissue. IMPRESSION: 1. The intracranial contents without significant interval change compared to the patient's prior CT scan from February 05, 2017. 2. Mild diffuse atrophy. 3. Microangiopathic ischemic changes. 4. Vascular calcifications. 5. Moderate mucosal thickening and proteinaceous material within the dependent portion of the right sphenoid sinus with mild bilateral ethmoid air cell mucosal thickening. .Marck Rangel MD, Date Time Electronically viewed and signed by .Marck Rangel MD, on 03/26/2017 01:35 .M/
[2017-03-26] MEDS ORDERED: HYDR-3670 PO (02:12)
--- NOTE | 2017-03-26 02:22 | ERD ---
ER Documentation Chief Complaint Chief Complaint ARZOLA, WEAKNESS, HIGH BP +NAUSEA TODAY. DENIES CP SOB HPI 71-year-old female, no headache secondary to elevated blood pressure today. She had mild associated nausea. No chest pain. No palpitations. Headache is mild to moderate intensity. Nonfocal neurologically. No visual acuity changes. No weakness. No other current issues. ROS All systems reviewed and are negative except as per history of present illness. Medications Home Meds Active Scripts Hydralazine Hcl* (Hydralazine Hcl*) 10 Mg Tablet, 10 MG PO Q6H Y for ELEVATED BLOOD PRESSURE, #60 TAB Prov:TONY CARO 03/26/17 Reported Medications Aspirin* (Aspirin* EC) 81 Mg Tablet.dr, 81 MG PO DAILY, TAB 02/05/17 Pioglitazone Hcl* (Pioglitazone Hcl*) 45 Mg Tablet, 45 MG PO DAILY, TAB 02/05/17 Losartan Potassium* (Losartan Potassium*) 25 Mg Tablet, 25 MG PO DAILY, TAB 02/05/17 Allergies Allergies: Coded Allergies: No Known Allergy (Unverified , 03/25/17) PMhx/Soc History of Surgery: Yes () Anesthesia Reaction: No Hx Neurological Disorder: No Hx Respiratory Disorders: No Hx Cardiac Disorders: Yes (HTN,HIGH CHOLESTEROL) Hx Psychiatric Problems: No Hx Miscellaneous Medical Probl: Yes (DIABETES) Hx Alcohol Use: No Hx Substance Use: No Hx Tobacco Use: No Smoking Status: Never smoker Physical Exam Vitals Vital Signs Date Time Temp Pulse Resp B/P Pulse Ox O2 Delivery O2 Flow Rate FiO2 03/26/17 01:46 67 18 126/68 96 Room Air 03/26/17 00:42 98.9 78 20 167/71 97 Room Air 03/25/17 21:54 199/91 03/25/17 19:32 98.9 90 20 175/71 97 Physical Exam Const: [] Head: Atraumatic Eyes: Normal Conjunctiva ENT: Normal External Ears, Nose and Mouth. Neck: Full range of motion..~ No meningismus. Resp: Clear to auscultation bilaterally Cardio: Regular rate and rhythm, no murmurs Abd: Soft, non tender, non distended. Normal bowel sounds Skin: No petechiae or rashes Back: No midline or flank tenderness Ext: No cyanosis, or edema Neur: Awake and alert Psych: Normal Mood and Affect Result Diagram: 03/25/17223403/25/172234 Results 24 hrs Laboratory Tests Test 03/25/17 22:35 White Blood Count 8.310^3/ul Red Blood Count 4.5010^6/ul Hemoglobin 14.3g/dl Hematocrit 41.1% Mean Corpuscular Volume 91.3fl Mean Corpuscular Hemoglobin 31.8pg Mean Corpuscular Hemoglobin Concent 34.8g/dl Red Cell Distribution Width 12.9% Platelet Count 35238^3/UL Mean Platelet Volume 8.8fl Neutrophils % 62.2% Lymphocytes % 29.7% Monocytes % 6.8% Eosinophils % 0.6% Basophils % 0.5% Nucleated Red Blood Cells % 0.0/100WBC Neutrophils # 5.110^3/ul Lymphocytes # 2.510^3/ul Monocytes # 0.610^3/ul Eosinophils # 0.110^3/ul Basophils # 0.010^3/ul Nucleated Red Blood Cells # 0.010^3/ul Sodium Level 141mmol/L Potassium Level 3.8mmol/L Chloride Level 107mmol/L Carbon Dioxide Level 24mmol/L Anion Gap 14 Blood Urea Nitrogen 12mg/dl Creatinine 0.58mg/dl Glucose Level 147mg/dl Calcium Level 9.7mg/dl Total Bilirubin 0.5mg/dl Direct Bilirubin 0.00mg/dl Indirect Bilirubin 0.5mg/dl Aspartate Amino Transf (AST/SGOT) 44IU/L Alanine Aminotransferase (ALT/SGPT) 56IU/L Alkaline Phosphatase 135IU/L Troponin I < 0.012ng/ml B-Type Natriuretic Peptide 55PG/ML Total Protein 8.9g/dl Albumin 4.5g/dl Globulin 4.40g/dl Albumin/Globulin Ratio 1.02 Current Medications Medications (Trade) Dose Ordered Sig/Mor Route PRN Reason Start Time Stop Time Status Last Admin Dose Admin Sodium Chloride (NS) 500 ml @ 500 mls/hr Q1H STAT IV 03/25/17 22:10 03/25/17 23:09 DC 03/25/17 22:10 Procedures/MDM EKG: Rate/Rhythm: [Normal Sinus Rhythm] QRS, ST, T-waves: [No changes consistent w/ acute ischemia] Impression: [No evidence of ischemia or arrhythmia] Chest X-ray 1V Interpreted by me: Soft Tissue: No acute abnormalities Bones: No acute abnormalities Mediastinum/Cardiac Silhouette/Lungs: [No acute abnormalities] Patient's neurologic symptoms have stabilized while they have been evaluated in the department and are appropriate for outpatient work up. No e/o meningitis, intracranial bleed, seizure, stroke. Departure Diagnosis: Primary Impression: HTN (hypertension), malignant Condition: Serious Patient Instructions: Hypertension, Established, Out Of Control TONY CARO Mar 26, 2017 02:22
[2017-03-26 02:47] VITALS: BP 119/67; PULSE 70; RESP 18
[2017-03-26] MEDS ORDERED: METF500T4 PO (03:58)
[2017-03-26] MEDS ORDERED: IBUP200C PO (03:58)
== END 2017-03-26 02:50 | disposition home or self-care (01) ==
LOC: E/R 18:10
DX: I10 Essential (primary) hypertension (principal); E11.9 Type 2 diabetes mellitus without complications; R93.0 Abnormal findings on diagnostic imaging of skull and head, not elsewhere classified; R06.02 Shortness of breath; Z79.82 Long term (current) use of aspirin
CPT/HCPCS: 36415; 70450; 71010; 80053; 83880; 84484; 85025; 93005; 99285; J7040

== ENCOUNTER 2017-03-29 00:11 | Emergency (ER) | payer OTHER ==
[~2017-03-29] VITALS: Ht 162.6 cm; Wt 55.5 kg
[~2017-03-29 00:11] MED LIST changes: +HYDR-3670 PO; +IBUP200C PO; +METF500T4 PO; -PIOG45TA17 PO
[2017-03-29 00:17] VITALS: Ht 162.6 cm; Wt 55.5 kg
--- NOTE | 2017-03-29 00:55 | ERD ---
ER Documentation Chief Complaint Chief Complaint High blood pressure HPI The patient is a 71-year-old female, presenting to the ER because of high blood pressure at 11 PM. She then complains of minimal intermittent headache. She had similar symptoms previously, last seen in the ER 2 days ago and had a negative brain CT and extensive blood test. She has not followed up with her physician. She is start taking hydralazine 10 mg every 6 hours as needed for her high blood pressure. She denies syncope, near syncope, facial pain, neck pain, chest pain, dyspnea, abdominal pain, he is dysuria, diarrhea. She does not smoke nor drink Past medical history: Hypertension, diabetes mellitus, dyslipidemia Past surgical history: ROS All systems reviewed and are negative except as per history of present illness. Medications Home Meds Active Scripts Atenolol* (Atenolol*) 25 Mg Tablet, 25 MG PO DAILY, #30 TAB Prov:MARISOL ZHENG MD 03/29/17 Hydralazine Hcl* (Hydralazine Hcl*) 10 Mg Tablet, 10 MG PO Q6H Y for ELEVATED BLOOD PRESSURE, #60 TAB Prov:TONY CARO 03/26/17 Reported Medications Ibuprofen* (Ibuprofen*) 200 Mg Capsule, 200 MG PO Q6, CAP 03/26/17 Metformin* (Glucophage*) 500 Mg Tab, 500 MG PO WITH BREAKFAST DINNE, #30 TAB 03/26/17 Aspirin* (Aspirin* EC) 81 Mg Tablet.dr, 81 MG PO DAILY, TAB 02/05/17 Losartan Potassium* (Losartan Potassium*) 25 Mg Tablet, 25 MG PO DAILY, TAB 02/05/17 Discontinued Reported Medications Pioglitazone Hcl* (Pioglitazone Hcl*) 45 Mg Tablet, 45 MG PO DAILY, TAB 02/05/17 Allergies Allergies: Coded Allergies: No Known Allergy (Unverified , 03/25/17) PMhx/Soc History of Surgery: Yes () Anesthesia Reaction: No Hx Neurological Disorder: No Hx Respiratory Disorders: No Hx Cardiac Disorders: Yes (HTN,HIGH CHOLESTEROL) Hx Psychiatric Problems: No Hx Miscellaneous Medical Probl: Yes (DIABETES) Hx Alcohol Use: No Hx Substance Use: No Hx Tobacco Use: No Physical Exam Vitals Vital Signs Date Time Temp Pulse Resp B/P Pulse Ox O2 Delivery O2 Flow Rate FiO2 03/29/17 02:05 97 16 139/75 97 Room Air 03/29/17 00:17 97.8 112 20 174/84 98 Physical Exam Const: No acute distress.Anxious Head: Atraumatic. Eyes: Normal Conjunctiva. ENT: Normal External Ears, Nose and Mouth. Neck: Full range of motion. No meningismus. Resp: Clear to auscultation bilaterally. Cardio: Regular rate and rhythm. Abd: Soft, non distended, normal bowel sounds, non tender. Skin: No petechiae or rashes. Back: No midline or flank tenderness. Ext: No cyanosis, or edema. Neur: Awake and alert. No focal deficit Psych: Normal Mood and Affect. Results 24 hrs Current Medications Medications (Trade) Dose Ordered Sig/Mor Route PRN Reason Start Time Stop Time Status Last Admin Dose Admin Acetaminophen (Tylenol Tab) 650 mg ONCE ONCE PO 03/29/17 01:30 03/29/17 01:31 DC 03/29/17 01:19 Alprazolam (Xanax) 0.25 mg ONCE ONCE PO 03/29/17 01:30 03/29/17 01:31 DC 03/29/17 01:49 Procedures/MDM MEDICAL MAKING DECISION: The patient is a 71-year-old female, presenting with acute accelerated hypertension, acute anxiety. She was treated with Tylenol 650 mg p.o. for her headache and Xanax 0.25 mg p.o. for her anxiety with good response. Her blood pressure improved without intervention. The differential diagnoses considered include but are not limited to subarachnoid hemorrhage, occult trauma, CVA, meningitis, encephalitis, hypertension, tension, migraine, cluster, narcotic withdrawal, cervical spine disease. Departure Diagnosis: Primary Impression: Accelerated hypertension Additional Impression: Acute anxiety Condition: Good Comments I advised her to stop the hydralazine q 6hr as needed and I prescribed her atenolol 25 mg daily I discussed the findings with the patient. I advised the patient to follow-up with the primary physician in about 1-2 days, sooner if needed and return if any concern. Disclaimer: Inadvertent spelling and grammatical errors are likely due to EHR/ dictation software use and do not reflect on the overall quality of patient care. Also, please note that the electronic time recorded on this note does not necessarily reflect the actual time of the patient encounter. MARISOL ZHENG MD Mar 29, 2017 00:55
[2017-03-29] MEDS ORDERED: ALPRAZOLAM 0.25 MG TAB PO ONE (01:30)
[2017-03-29] MEDS ORDERED: ACETAMINOPHEN 325 MG TAB PO ONE (01:30)
[2017-03-29 02:05] VITALS: BP 139/75; PULSE 97; RESP 16
[2017-03-29] MEDS ORDERED: ATEN-51 PO (02:15)
== END 2017-03-29 02:30 | disposition home or self-care (01) ==
LOC: E/R 00:11
DX: I10 Essential (primary) hypertension (principal); F41.9 Anxiety disorder, unspecified; E11.9 Type 2 diabetes mellitus without complications; Z79.84 Long term (current) use of oral hypoglycemic drugs; Z79.82 Long term (current) use of aspirin
CPT/HCPCS: 99283

== ENCOUNTER 2017-12-30 03:21 | Emergency (ER) | END 2017-12-30 05:10 | disposition home or self-care (01) ==